=== PATIENT | female | born 1975 | race Two or more races ===

== ENCOUNTER 2020-11-28 15:15 | Emergency (ER) | payer OTHER ==
[~2020-11-28] VITALS: Ht 167.6 cm; Wt 88.5 kg
[2020-11-28] MEDS ORDERED: ADIPEX-P37.5 MG (15:32)
== END 2020-11-28 19:35 | disposition home or self-care (01) ==
LOC: ER 15:15
DX: S33.5XXA Sprain of ligaments of lumbar spine, initial encounter (principal); M54.59 Other low back pain; X50.0XXA Overexertion from strenuous movement or load, initial encounter; Y93.B2 Activity, push-ups, pull-ups, sit-ups; Y92.69 Other specified industrial and construction area as the place of occurrence of the external cause; Y99.8 Other external cause status